=== PATIENT | male | born 2000 | race Hispanic/Latino ===

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

== ENCOUNTER 2021-05-11 13:37 | Emergency (ER) | payer OTHER | END 2021-05-11 16:06 | disposition home or self-care (01) | LOC: ERS 13:37 | DX: J06.9 Acute upper respiratory infection, unspecified (principal); H66.91 Otitis media, unspecified, right ear; F17.210 Nicotine dependence, cigarettes, uncomplicated | CPT/HCPCS: 99283 ==

== ENCOUNTER 2022-04-05 13:34 | Emergency (ER) | payer SELFPAY ==
[2022-04-05 16:55] LABS: SARS-CoV-2 NAA Rapid Test Not Detected (NotDetected)
== END 2022-04-05 17:04 | disposition home or self-care (01) ==
LOC: ERS 13:34
DX: H66.91 Otitis media, unspecified, right ear (principal); J10.1 Influenza due to other identified influenza virus with other respiratory manifestations; F17.290 Nicotine dependence, other tobacco product, uncomplicated; Z20.822 Contact with and (suspected) exposure to COVID-19
CPT/HCPCS: 87081; 87430; 99283

== ENCOUNTER 2022-07-07 22:34 | Emergency (ER) | payer OTHER, SELFPAY ==
[2022-07-08] MEDS ORDERED: Acetaminophen 500 MG TAB ONE (00:04)
[2022-07-08] MEDS ORDERED: Ibuprofen 200 MG TAB ONE (00:05)
== END 2022-07-08 00:10 | disposition home or self-care (01) ==
LOC: ERS 22:34
DX: S13.4XXA Sprain of ligaments of cervical spine, initial encounter (principal); M54.9 Dorsalgia, unspecified; F17.290 Nicotine dependence, other tobacco product, uncomplicated; V89.2XXA Person injured in unspecified motor-vehicle accident, traffic, initial encounter
CPT/HCPCS: 99283